=== PATIENT | female | born 1980 | race Caucasian/White ===

== ENCOUNTER 2024-07-06 20:12 | Emergency (ER) | payer BC ==
[~2024-07-06] VITALS: Ht 162.6 cm; Wt 64.0 kg
[2024-07-06 21:15] VITALS: O2SAT 100
[2024-07-06 22:09] LABS: BASOPHILS % 0.9 % (0.0-2.0); DIFFERENTIAL COMMENT 0; EOSINOPHILS % 1.2 % (0.0-5.0); HEMATOCRIT. 36.1 % (36.0-48.0); HEMOGLOBIN. 11.5 g/dL (12.0-16.0); LYMPHOCYTES % 35.3 % (20.0-50.0); MEAN CORPUSCULAR HEMOGLOBIN 25.6 pg (28.0-32.0); MEAN CORPUSCULAR VOLUME 79.9 fL (81.0-99.0); MEAN PLATELET VOLUME 10.5 fl (7.4-10.4); MONOCYTES % 9.9 % (2.0-8.0); NEUTROPHILS % 52.7 % (40.0-76.0); PLATELET 206 x1000/uL (130-400); RED BLOOD CELL COUNT 4.52 mill/uL (4.2-5.4); RED CELL DISTRIBUTION WIDTH 14.8 % (11.6-14.6)
[2024-07-06 22:40] LABS: CHLORIDE 105 mEq/L (98-107); POTASSIUM 3.7 mEq/L (3.5-5.1); SODIUM 137 mEq/L (136-145)
[2024-07-06 22:42] LABS: CALCIUM 10.2 mg/dL (8.7-10.4); CARBON DIOXIDE 27 mEq/L (21-32)
[2024-07-06 22:47] LABS: CREATININE 0.6 mg/dL (0.6-1.0); GLUCOSE 99 mg/dL (70-105); UREA NITROGEN BLOOD 11 mg/dL (9-23)
[2024-07-06 22:49] LABS: ALANINE AMINOTRANSFERASE 27 IU/L (10-49); ALBUMIN 4.3 g/dL (3.2-4.8); ASPARTATE AMINOTRANSFERASE 24 IU/L (<34); BILIRUBIN TOTAL 0.4 mg/dL (0.1-1.0); PROTEIN TOTAL 7.4 g/dL (6.0-8.3)
[2024-07-06 22:54] LABS: BILIRUBIN DIRECT < 0.1 mg/dL (<=3.0)
[2024-07-06] MEDS ORDERED: IBUP-2029 MT (23:00)
[2024-07-06 23:32] VITALS: BP 125/81; PULSE 70; RESP 16; TEMP 36.6; O2SAT 100
[2024-07-06] MEDS: IBUPROFEN 600MG TABLET PO ONE (23:32)
== END 2024-07-06 23:36 | disposition home or self-care (01) ==
LOC: ER 20:12
DX: S09.8XXA Other specified injuries of head, initial encounter (principal); M54.50 Low back pain, unspecified; M54.2 Cervicalgia; Z90.49 Acquired absence of other specified parts of digestive tract; V49.40XA Driver injured in collision with unspecified motor vehicles in traffic accident, initial encounter; Y93.89 Activity, other specified; Y92.89 Other specified places as the place of occurrence of the external cause; Y99.8 Other external cause status
CPT/HCPCS: 36415; 80048; 80076; 85025; 99283